=== PATIENT | female | born 1945 | race Caucasian/White ===

== ENCOUNTER → 2020-05-25 | Outpatient (CLI) | payer MEDICARE ==
--- NOTE | 2020-05-28 06:59 | PE ---
EXAMINATION TYPE: PET CT fusion skull to thigh DATE OF EXAM: 05/25/2020 COMPARISON: NONE at this institution. HISTORY: Lymphoma diagnosed in the abdomen July 08, 2019 completed chemotherapy November 08, 2019 TECHNIQUE: Following the intravenous administration of 10.75 mCi of F-18 FDG, whole body images are performed from the skull base to the midthigh. Images are reviewed on the computer in the coronal, a xial, and sagittal planes. Reconstructed rotating images are created on independent workstation and reviewed on the computer. A noncontrast CT is performed in conjunction with the PET scan. SCAN: Subsequent Scan FINDINGS: Mean SUV mediastinum: 1.38 Mean SUV liver: 2.26 SKULL BASE AND NECK: No areas of suspicious hypermetabolic uptake. CHEST, MEDIASTINUM, AND HILAR REGION: No areas of suspicious hypermetabolic uptake. ABDOMEN AND PELVIS: Normal excretion is seen. No areas of suspicious hypermetabolic uptake or adenopa thy. Mild hepatomegaly is seen without suspicious focal hypermetabolic uptake. Spleen felt within nor mal limits in size. OSSEOUS STRUCTURES: No areas of suspicious hypermetabolic uptake. OTHER CT: There is right subclavian Mediport catheter terminating in SVC. There is calcified 1.0 cm l eft lower lobe nodule or granuloma axial image 100. Heart size mildly enlarged. Cholecystectomy clips are noted. Moderate diffuse colonic fecal burden. Uterus surgically absent or m arkedly atrophic. Spine straightened with moderate multilevel spurring. There is moderate multilevel disc space narrowi ng and vacuum disc phenomenon in the lumbar spine. Multilevel facet arthropathy lower lumbar spine is present. IMPRESSION: No suspicious hypermetabolic uptake or concerning masses/adenopathy to suggest active lym phoma.
== END | disposition home or self-care (01) ==
LOC: RADPETMAIN 09:17
PROVIDERS: ATTEND Internal Medicine Hematology & Oncology
DX: C83.33 Diffuse large B-cell lymphoma, intra-abdominal lymph nodes (principal)
CPT/HCPCS: 78815; A9552

== ENCOUNTER → 2020-12-21 | Outpatient (CLI) | payer MEDICARE ==
--- NOTE | 2020-12-24 06:31 | PE ---
EXAMINATION TYPE: PET CT fusion skull to thigh DATE OF EXAM: 12/21/2020 COMPARISON: Prior PET/CT May 25, 2020 HISTORY: Diffuse large B-cell lymphoma. Completed chemotherapy in October. TECHNIQUE: Following the intravenous administration of 9.69 mCi of F-18 FDG, whole body images are p erformed from the skull base to the midthigh. Images are reviewed on the computer in the coronal, ax ial, and sagittal planes. Reconstructed rotating images are created on independent workstation and r eviewed on the computer. A localization and attenuation correction CT is performed in conjunction w ith the PET scan. Blood glucose level equals 100 SCAN: Subsequent Scan FINDINGS: Mean SUV mediastinum: 1.24 Mean SUV liver: 2.35 SKULL BASE AND NECK: No areas of suspicious hypermetabolic uptake. CHEST, MEDIASTINUM, AND HILAR REGION: No areas of suspicious hypermetabolic uptake. ABDOMEN AND PELVIS: Normal excretion is seen. No areas of suspicious hypermetabolic uptake or adenopa thy. Mild hepatomegaly is seen without new suspicious focal hypermetabolic uptake. Spleen felt stable and within normal limits in size. OSSEOUS STRUCTURES: No areas of suspicious hypermetabolic uptake. OTHER CT: There is persistent right subclavian Mediport catheter. There is persistent calcified 1.0 c m left lower lobe nodule or granuloma axial image 93 current study. Heart size is stable and mildly e nlarged. Some coronary artery calcification remains present. Cholecystectomy clips are redemonstrated. Moderate diffuse colonic fecal burden. Uterus surgically ab sent or markedly atrophic. Spine straightened with moderate multilevel spurring. There is moderate multilevel disc space narrowi ng and vacuum disc phenomenon in the lumbar spine. Multilevel facet arthropathy lower lumbar spine is present. IMPRESSION: No suspicious hypermetabolic uptake or concerning masses/adenopathy to suggest active lym phoma recurrence. No significant change from prior.
== END | disposition home or self-care (01) ==
LOC: RADPETMAIN 11:12
PROVIDERS: ATTEND Internal Medicine Hematology & Oncology
DX: C83.33 Diffuse large B-cell lymphoma, intra-abdominal lymph nodes (principal); Z92.21 Personal history of antineoplastic chemotherapy
CPT/HCPCS: 78815; A9552

== ENCOUNTER → 2022-01-06 | Outpatient (CLI) | payer MEDICARE ==
--- NOTE | 2022-01-07 14:04 | MM ---
Reason for Exam: Screening (asymptomatic). Patient History: Menarche at age 14. First Full-Term at age 24. Left ovary removed at age 52. Right ovary removed at age 52. Hysterectomy at age 52. Postmenopausal. Estrogen for 2 years from age 51 until age 53. 2000, Lumpectomy on the Left side. Risk Values: Chelsey 5 year model risk: 1.6%. NCI Lifetime model risk: 3.4%. Tissue Density: There are scattered fibroglandular densities. Findings: Analyzed By CAD. There is a focal asymmetry in the upper outer left breast. Short-term follow-up is recommended to confirm stability. This is less distinct on the medial lateral week view. No suspicious groups of microcalcifications, spiculated or lobular masses, architectural distortion or other secondary signs of malignancy are mammographically apparent. Overall Assessment: Probably benign, BI-RAD 3 Management: Diagnostic Mammogram of the left breast in 6 months. A negative mammogram report should not preclude additional follow up of suspicious palpable abnormalities. Patient should continue monthly self breast exam. A clinical breast exam by your physician is recommended on an annual basis and results should be correlated with mammographic findings. Electronically signed and approved by: Dio Junior D.O. Radiologis
== END ==
LOC: RADMAMWWP 16:29
PROVIDERS: ATTEND Internal Medicine Hematology & Oncology
DX: Z12.31 Encounter for screening mammogram for malignant neoplasm of breast (principal); Z78.0 Asymptomatic menopausal state
CPT/HCPCS: 77063; 77067

== ENCOUNTER → 2022-07-25 | Outpatient (CLI) | payer MEDICARE ==
--- NOTE | 2022-07-26 12:56 | PE ---
EXAMINATION TYPE: PET CT fusion whole body DATE OF EXAM: 07/25/2022 CLINICAL INDICATION:Female, 77 years old with history of C83.33 Lymphoma; TECHNIQUE: Following the intravenous administration of 11.18 mCi of F-18 FDG, whole body images are performed from the skull base to the midthigh. Images are reviewed on the computer in the coronal, axial, and sagittal planes. Reconstructed rotating images are created on independent workstation and reviewed on the computer. A non-contrast CT is performed in conjunction with the PET scan. Glucose level 95 mg/dL COMPARISON: CT None, PET/CT 12/21/2020, FINDINGS: Mediastinal SUV mean is 1.6. Hepatic parenchyma SUV mean is 2.54. SKULL BASE AND NECK: No suspicious radiotracer activity. CHEST, MEDIASTINUM, AND HILAR REGION: No suspicious radiotracer activity. ABDOMEN AND PELVIS: No suspicious radiotracer activity. OSSEOUS STRUCTURES: No suspicious radiotracer activity. OTHER CT: Mild atherosclerosis of the arterial vasculature. The heart is mildly enlarged for size. Co ronary artery atherosclerosis. The gallbladder surgically absent. Scattered clonic diverticula. Multi level disc degeneration changes throughout the spine. Right shoulder joint effusion suspected. IMPRESSION: No suspicious radiotracer activity.
== END | disposition home or self-care (01) ==
LOC: RADPETMAIN 12:22
PROVIDERS: ATTEND Internal Medicine Hematology & Oncology
DX: C83.33 Diffuse large B-cell lymphoma, intra-abdominal lymph nodes (principal)
CPT/HCPCS: 78816; A9552

== ENCOUNTER → 2022-10-31 | Outpatient (CLI) | payer MEDICARE ==
--- NOTE | 2022-10-31 11:49 | CA ---
Stress Echo Report Gisel Acevedo Age: 77 Gender: F : 1945 Exam Date: 10/31/2022 10:47 Exam Location: [facility] Ht (in): 66 Wt (lb): 143 Ordering Physician: Juan Lisa MD Referring Physician: Maria L FORMAN Drier Take Off Tender: Delisa Ramos RDCS Technologist Procedure CPT: Indication: I25.10 ICD-9 Codes: Rhythm: Patient History: Hypertension Cardiac Medications: VALSARTAN,,,,,, BIOTIN,,,,,, VIT D,,,,,, CITRACAL,,,,,, MULTIVITAMIN,,,,, Medications in past 24 hours: Contrast: Stress Results Protocol: Eugene Total dose(mL): Exercise Duration (min:sec): 4:[address] Depression (mm): Angina Score: Gutierrez Score: METS: 6.0 Resting HR: 101 Resting BP: 137 / 85 Peak HR: 149 Peak BP: 187 / 101 Max Predicted HR: 144 103 % Max Predicted HR Target HR: 122 Double Product: 46121 Stress Summary: The patient's target heart rate was achieved BP Response: Normal Reason for Termination: Reached target heart rate or work-load Cardiac Symptoms: Fatigue ECG Analysis Resting ECG: Stress ECG: Arrhythmia: Echo Analysis Resting Echo: Peak Echo Analysis: MEASUREMENTS (Male/Female) Normal Values CONCLUSIONS Baseline heart rate 140 beats a minute, Baseline blood pressure 137/85 mmHg Baseline. EKG showed sinus tachycardia with normal ST segments Patient exercised on a Eugene protocol for 4 minutes 15 seconds She experienced fatigue Peak heart rate 147 beats a minute Peak blood pressure 187/100 mmHg No ECG is for ischemia At peak exercise, there was augmentation of overall contractility without development of any wall motion abnormalities At recovery lesion: Systolic function remained normal Impression Low exercise capacity No ECG or echocardiographic evidence for ischemia at this workload level Dr. Jair Ballesteros MD (Electronically Signed) Final Date: 31 October 2022 11:48
== END | disposition home or self-care (01) ==
LOC: RADNMMAIN 09:59
PROVIDERS: ATTEND Family Medicine
DX: I25.10 Atherosclerotic heart disease of native coronary artery without angina pectoris (principal)
CPT/HCPCS: 93351

== ENCOUNTER → 2023-05-28 | Outpatient (CLI) | payer MEDICARE ==
--- NOTE | 2023-06-01 06:37 | MM ---
Reason for Exam: Screening (asymptomatic). Last mammogram was performed 1 year(s) and 5 month(s) ago. Patient History: Menarche at age 14. First Full-Term at age 24. Left ovary removed at age 52. Right ovary removed at age 52. Hysterectomy at age 52. Postmenopausal. Estrogen for 2 years from age 51 until age 53. 2000, Lumpectomy on the Left side. Risk Values: Chelsey 5 year model risk: 1.6%. NCI Lifetime model risk: 3.2%. Prior Study Comparison: 01/06/2022 Bilateral MG 3D screening mammo w/cad, [facility]. Tissue Density: There are scattered fibroglandular densities. Findings: Analyzed By CAD. There is no suspicious group of microcalcifications or new suspicious mass in either breast. Overall Assessment: Negative, BI-RAD 1 Management: Screening Mammogram of both breasts in 1 year. . Patient should continue monthly self-breast exams. A clinical breast exam by your physician is recommended on an annual basis. This exam should not preclude additional follow-up of suspicious palpable abnormalities. Note on Chelsey scores and lifetime risk: 1. A Chelsey score greater than 3% is considered moderate risk. If this is the case, consider specialist referral to assess eligibility for a risk reducing agent. 2. If overall lifetime risk for the development of breast cancer is 20% or higher, the patient may qualify for future screening with alternating mammogram and breast MRI. Electronically signed and approved by: Christian Aguila M.D. Radiologist
== END | disposition home or self-care (01) ==
LOC: RADMAMWWP 14:31
PROVIDERS: ATTEND Internal Medicine Hematology & Oncology
DX: Z12.31 Encounter for screening mammogram for malignant neoplasm of breast (principal); Z78.0 Asymptomatic menopausal state
CPT/HCPCS: 77063; 77067

== ENCOUNTER → 2023-07-30 | Outpatient (CLI) | payer MEDICARE ==
--- NOTE | 2023-08-03 15:32 | PE ---
EXAMINATION TYPE: PET CT fusion skull to thigh DATE OF EXAM: 07/30/2023 COMPARISON: No recent pertinent CT. Prior PET/CT: Most recent PET/CT 07/25/2022 HISTORY: Lymphoma TECHNIQUE: Following the intravenous administration of 11.11 mCi of F-18 FDG, whole body images are performed from the skull base to the midthigh. Images are reviewed on the computer in the coronal, a xial, and sagittal planes. Reconstructed rotating images are created on independent workstation and reviewed on the computer. A localization and attenuation correction CT is performed in conjunction with the PET scan. DLP: 270.48 mGycm SCAN: Subsequent Blood glucose: 95 mg/dL Average Mediastinum SUV: 1.51 Average Liver SUV: 2.39 FINDINGS: NECK: There is some focal uptake within the skin superior lateral to the right orbit. Correlate for primary or metastatic lesion at this level. Example image 7, SUV 3.61 There may be a small lymph node posterior to the angle of the jaw on the right, image 30, SUV 3.85. Small amount of uptake is in the right tonsillar pillar, image 28, SUV 3.33. THORAX: There is some uptake at a costovertebral junction on the left. This could be inflammatory in nature. Small metastatic lesion is not excluded. Image 101, SUV 4.34. Some additional uptake is in th e midline, SUV 3.78. Image 101. ABDOMEN: There is a small focus of radiotracer between ribs and the soft tissues posterior medial rig ht lung base. Image 119, SUV 5.87. PELVIS: There is a small focus of radiotracer accumulation within the posterior lateral left hemipelv is, image 199, SUV 4.42. There is a small focus of radiotracer accumulation in the region of the left inguinal lymph nodes. Image 222, SUV 3.27. OSSEOUS STRUCTURES: No additional areas suspicious for osseous metastasis is evident. LOCALIZATION CT: No additional findings. No suspicious enlarged lymphadenopathy. COMPARISON: Small foci of radiotracer are interval changes from the comparison. IMPRESSION: 1. No areas of slightly elevated radiotracer suspicious for metastatic disease. These would include r ight superior lateral supraorbital region, right angle of jaw and tonsillar pillar, right intercostal region and left thoracic region and left inguinal region discussed above.
== END | disposition home or self-care (01) ==
LOC: RADPETMAIN 11:01
PROVIDERS: ATTEND Internal Medicine Hematology & Oncology
DX: C83.33 Diffuse large B-cell lymphoma, intra-abdominal lymph nodes (principal)
CPT/HCPCS: 78815; A9552

== ENCOUNTER → 2023-10-29 | Outpatient (CLI) | payer MEDICARE ==
--- NOTE | 2023-10-30 16:55 | PE ---
EXAMINATION TYPE: PET CT fusion skull to thigh DATE OF EXAM: 10/29/2023 COMPARISON: No recent pertinent CT Prior PET/CT: 07/30/2023 HISTORY: Lymphoma TECHNIQUE: Following the intravenous administration of 11.5 to mCi of F-18 FDG, whole body images ar e performed from the skull base to the midthigh. Images are reviewed on the computer in the coronal, axial, and sagittal planes. Reconstructed rotating images are created on independent workstation an d reviewed on the computer. A localization and attenuation correction CT is performed in conjunctio n with the PET scan. DLP: 453.83 mGycm SCAN: Subsequent Blood glucose: 11.52 mg/dL Average Mediastinum SUV: 2.01 Average Liver SUV: 2.86 FINDINGS: NECK: There is a punctate area of uptake within the left submandibular region on the right with an S UV of 3.09. Image 47. This appears to be present previously, previous SUV 3.85. THORAX: There is a punctate area of uptake anterior to the left clavicle, image 67, SUV 1.59 There is uptake within the left costovertebral junction region image 108, SUV 4.49. This appears to b e present previously suspicious for small metastatic lesion. There may be an additional metastatic le daisha in the posterior lateral left spinal canal at this level, image 111, SUV 4.03. This may been pre sent previously within the canal measuring 3.13 SUV. Previous costovertebral uptake on the right is not evident on the current exam. ABDOMEN: No abnormal uptake PELVIS: There is a focal area of uptake within the right posterior lateral pelvis may be near the ins ertion of a muscular attachment, image 223, SUV 3.65. Small lymph node should be considered. OSSEOUS STRUCTURES: No abnormal uptake LOCALIZATION CT: No significant changes COMPARISON: Small areas of subtle uptake appear to be increasing suspicious for metastatic disease. IMPRESSION: 1. Small areas of uptake are increasing in SUV values suspicious for metastatic disease. This would i nclude anterior to the distal left clavicle, left costovertebral junction lower thoracic spine, spina l canal uptake near the costovertebral junction uptake.
== END | disposition home or self-care (01) ==
LOC: RADPETMAIN 08:41
PROVIDERS: ATTEND Internal Medicine Hematology & Oncology
DX: C83.33 Diffuse large B-cell lymphoma, intra-abdominal lymph nodes (principal)
CPT/HCPCS: 78815; A9552